=== PATIENT | male | born 1945 | race Caucasian/White ===

== ENCOUNTER → 2016-07-18 | Outpatient (CLI) | payer OTHER ==
[~2016-07-18] MED LIST: ADVIN25/60 INH; CLR10 PO; FINA5TAB PO; IMD/2 PO; OXYM0.0592 NAE; PRLSR20 PO
[2016-07-18 12:54] LABS: CHOLESTEROL/HDL RATIO 1.8
== END | disposition home or self-care (01) ==
LOC: C.LABBFT 11:21
PROVIDERS: ATTEND Nurse Practitioner
DX: E78.5 Hyperlipidemia, unspecified (principal)

== ENCOUNTER → 2017-03-23 | Outpatient (CLI) | payer OTHER ==
--- NOTE | 2017-03-23 10:47 | DIAGNOSTIC IMAGING REPORT ---
CERVICAL SPINE 5 VIEWS HISTORY: M79.601 Paresthesia and pain of both upper [id number] COMPARISON: None. FINDINGS: The cervical spine is visualized from C1 through the superior endplate of T1. There is no fracture. 2 mm of retrolisthesis of C3 on C4. Moderate facet degenerative changes throughout the cervical spine. Moderate to space narrowing at C3-C4, C4-C5, and C5-C6. Mild levoscoliosis at the cervicothoracic junction which could be positional. Prevertebral soft tissues and the atlantodens interval are intact. IMPRESSION: 1. Moderate degenerative disc disease and facet osteoarthritis within the cervical spine as described above. 2. There is 2 mm of retrolisthesis of C3 on C4. This favors long-standing degenerative change. Electronically signed by: Zen Ballesteros M.D. 03/23/2017 10:46 AM Dictated Date/Time: 03/23/2017 10:43 AM
== END | disposition home or self-care (01) ==
LOC: C.RAD1850 10:23
PROVIDERS: ATTEND Physician Assistant Medical
DX: R20.2 Paresthesia of skin (principal); M79.601 Pain in right arm; M79.602 Pain in left arm; M50.30 Other cervical disc degeneration, unspecified cervical region; M53.82 Other specified dorsopathies, cervical region

== ENCOUNTER 2019-01-10 06:54 | Inpatient (IN) ==
--- NOTE | 2019-01-07 09:29 | Anesthesiology Consultation ---
Date of Service January 07, 2019 Assessment & Plan (1) Encounter for pre-operative examination: Chart Review Chart Review: Acceptable Risk for Surgery and Patient NOT seen in Pre Admission Testing History Surgery Operation Date: 01/10/19 11:45 Proposed Procedures p Laparoscopic Hiatal Hernia Repair with Fundoplication, - Steve Wilkes DO s Intra-Op EGD - Steve Wilkes DO Height/Weight Height: 5 ft 9 in Weight: 99.79 kg Allergies Allergy/AdvReac Type Severity Reaction Status Date / Time No Known Allergies Allergy Verified 01/01/19 09:20 Medications Home Medications Medication Instructions Recorded Confirmed Last Taken albuterol sulfate [ProAir HFA] 2 puff INHALATION QID PRN 06/22/18 01/01/19 06/26/18 02:00 aspirin 81 mg PO QAM 06/22/18 01/01/19 06/25/18 04:00 cholecalciferol (vitamin D3) 1,000 unit PO BID 06/22/18 01/01/19 06/25/18 04:00 [Vitamin D3] finasteride 5 mg PO QAM 06/22/18 01/01/19 06/25/18 04:00 fluticasone propion-salmeterol 1 inh INHALATION BID PRN 06/22/18 01/01/19 06/25/18 04:00 [Advair Diskus] fluticasone propionate [Flonase 2 spray INTRANASAL DAILY PRN 06/22/18 01/01/19 Unknown Allergy Relief] loratadine [Claritin] 10 mg PO QAM 06/22/18 01/01/19 06/25/18 04:00 magnesium oxide 400 mg PO QAM 06/22/18 01/01/19 06/25/18 04:00 omeprazole 40 mg PO QAM 06/22/18 01/01/19 06/25/18 04:00 simvastatin 10 mg PO HS 06/22/18 01/01/19 06/25/18 04:00 terazosin 5 mg PO QAM 06/22/18 01/01/19 06/25/18 04:00 montelukast 10 mg tablet 10 mg PO QPM #1 tab 11/14/18 01/01/19 Unknown Past Medical History Medical History Dyspnea on exertion Dysphagia Adenomatous colon polyp H/O Asthma Mild obstructive airway disease per 07/2018 PFTs BPH (benign prostatic hyperplasia) GERD (gastroesophageal reflux disease) Hearing loss in right ear Hiatal hernia History of colon polyps Hyperlipidemia Obesity Past Surgical History Surgical History History of carpal tunnel surgery of right wrist History of colonoscopy History of esophagogastroduodenoscopy (EGD) History of lumbar discectomy History of repair of left rotator cuff History of tonsillectomy Social History Smoking Status: Former smoker tobacco type: cigarettes Do You Dip or Chew Tobacco: No Smoking End Date: QUIT Hx Alcohol Use: Yes Alcohol type: beer alcohol intake frequency: 0-2 drinks per day Hx Substance Use: No substance use type: does not use Testing Laboratory Results 12/24/18 WBC: 4.88 H/H: 13.6/41.8 PLATELETS: 176 SODIUM: 139 POTASSIUM: 4.7 CHLORIDE: 105 CO2: 28 BUN: 25 CREATININE: 1.40 GLUCOSE: 113 A1C: 6.4% Electrocardiogram Date: 01/04/19 Findings: + NSR @ (70) Chest X-Ray Date: 08/29/18 Findings: + NAD Moderate sized hiatal hernia. Stress Test Date: 11/02/18 Type: exercise Normal stress echo at 7 METs and a peak HR of > 100% MPHR. No exercise-induced chets pain. No EKG changes. Baseline echocardiogram notes normal LV sytolic function and no significant valvular pathology. Pulmonary Function Test Date: 07/24/18 Mild obstructive airway disease with slight improvement after inhaled bronchodilatory consistent with the clinical impression of asthma.
[~2019-01-10 06:54] MED LIST changes: -ADVIN25/60 INH; +CEFAZOLIN 2000MG 2,000 MG/15 ML SYR IV SCH; -CLR10 PO; +DEXAMETHASONE SOD INJ 4 MG/ML VIAL ONE; -FINA5TAB PO; +GLYCOPYRROLATE 0.2 MG/ML VIAL ONE; -IMD/2 PO; +LARYING-O-JET KIT (LTA) ONE; +LIDOCAINE HCL 2% 2 ML VIAL/AMP(20MG/ML) INFIL ONE; +LR 15ML/HR IV SCH; +MIDAZOLAM HCL 1 MG/ML 2ML VIAL ONE; +NEOSTIGMINE METHYLSULFATE 5 MG/5 ML SYR ONE; +ONDANSETRON INJ 2 MG/ML 2 ML VIAL ONE; -OXYM0.0592 NAE; -PRLSR20 PO; +PROPOFOL IV EMULSION 10 MG/ML 20 ML VIAL IV ONE; +ROCURONIUM BROMIDE 10 MG/ML 5 ML VIAL ONE; +SUCCINYLCHOLINE CHLORIDE 20 MG/ML 10 ML VIAL ONE; +ePHEDrine sulfate 50 MG/ML SYR ONE; +fentaNYL citrate 100 MCG/2 ML VIAL ONE
[2019-01-10] MEDS ORDERED: BUPIVACAINE/EPINEPHRINE 0.5% MPF 1:200,000 30 ML VIAL ONE (07:10)
--- NOTE | 2019-01-10 07:17 | History & Physical Report ---
Date of Service January 10, 2019 Assessment & Plan (1) Hiatal hernia with GERD: We discussed his options both conservative and operative. We discussed hiatal hernia with and without fundoplication. He should be able to tolerate a 360 degree fundoplication. We discussed risk which include bleeding, infection, DVT, PE, NM, CVA, injury to another organ such as esophagus diaphragm stomach spleen etc. After all this I answered his questions. We discussed diet expected after the procedure. We will proceed with laparoscopic hiatal hernia repair with fundoplication. History of Present Illness Primary Care Provider: Brian Choudhury MD Patient here with known hiatal hernia and rather severe acid reflux disease. Manometry testing did not show a motility disorder. He is here today for laparoscopic hiatal hernia repair and Aga fundoplication. Allergies Allergy/AdvReac Type Severity Reaction Status Date / Time No Known Allergies Allergy Verified 01/01/19 09:20 Home Medications Home Medications Medication Instructions Recorded Confirmed Type albuterol sulfate [ProAir HFA] 2 puff INHALATION QID PRN 06/22/18 01/01/19 History aspirin 81 mg PO QAM 06/22/18 01/01/19 History cholecalciferol (vitamin D3) 1,000 unit PO BID 06/22/18 01/01/19 History [Vitamin D3] finasteride 5 mg PO QAM 06/22/18 01/01/19 History fluticasone propion-salmeterol 1 inh INHALATION BID PRN 06/22/18 01/01/19 History [Advair Diskus] fluticasone propionate [Flonase 2 spray INTRANASAL DAILY PRN 06/22/18 01/01/19 History Allergy Relief] loratadine [Claritin] 10 mg PO QAM 06/22/18 01/01/19 History magnesium oxide 400 mg PO QAM 06/22/18 01/01/19 History omeprazole 40 mg PO QAM 06/22/18 01/01/19 History simvastatin 10 mg PO HS 06/22/18 01/01/19 History terazosin 5 mg PO QAM 06/22/18 01/01/19 History montelukast 10 mg tablet 10 mg PO QPM #1 tab 11/14/18 01/01/19 History Past Med/Surg History Medical History Dyspnea on exertion Dysphagia Adenomatous colon polyp H/O Asthma Mild obstructive airway disease per 07/2018 PFTs BPH (benign prostatic hyperplasia) GERD (gastroesophageal reflux disease) Hearing loss in right ear Hiatal hernia History of colon polyps Hyperlipidemia Obesity Surgical History History of carpal tunnel surgery of right wrist History of colonoscopy History of esophagogastroduodenoscopy (EGD) History of lumbar discectomy History of repair of left rotator cuff History of tonsillectomy Social History Preferred Language: Mauritian Communication Ability: Effective [employer]ating [employer] Required: No Beliefs That Will Affect Care: None Current Living Situation: Spouse Other Information That Helps Us Care for You: No Feels Safe at Home: Yes Safety Concerns: Feels Safe At This Time Smoking Status: Former smoker Tobacco Type: cigarettes ; Do You Dip or Chew Tobacco: No ; Smoking End Date: QUIT ; Second Hand Exposure: Yes ( smokes) ; Tobacco Cessation Education Requested by Patient: No Hx Alcohol Use: Yes Alcohol type: beer Hx Substance Use: No Review of Systems All systems reviewed & are unremarkable except as noted in HPI & below Physical Exam Constitutional: WD/WN, vitals as above no acute distress and not ill appearing Eyes: PERRL, conjunctivae normal, anicteric sclerae EOM intact bilaterally ENMT: external ear and nose normal, oropharynx normal Ears: no hearing impairment Neck: trachea midline, no thyromegaly Respiratory: normal respiratory effort; no respiratory distress and does not use accessory muscles Cardiovascular: Rate/Rhythm: regular rate and regular rhythm Gastrointestinal (Abdomen): normal bowel sounds, soft, nontender, no hepatosplenomegaly Skin: no rashes, warm and dry Psychiatric: Orientation: alert, oriented x 3 and cooperative
[2019-01-10] MEDS ORDERED: ATROPINE SULFATE 0.1 MG/ML 10ML SYR IV PRN (07:40)
[2019-01-10] MEDS ORDERED: ONDANSETRON INJ 2 MG/ML 2 ML VIAL IV PRN ×2 (07:40→11:33)
[2019-01-10] MEDS ORDERED: ePHEDrine sulfate 50 MG/ML AMP IV PRN (07:40)
[2019-01-10] MEDS ORDERED: fentaNYL citrate 100 MCG/2 ML VIAL ONE (08:38)
[2019-01-10] MEDS ORDERED: LABETALOL HCL IV 5 MG/ML 20ML IV ONE (08:41)
[2019-01-10] MEDS ORDERED: ROCURONIUM BROMIDE 10 MG/ML 5 ML VIAL ONE (09:44)
--- NOTE | 2019-01-10 10:19 | Post Operative Brief Note ---
PG Immediate Post Op with CF Date of Surgery January 10, 2019 Pre & Post Diagnosis Operation Date: 01/10/19 08:15 Pre-Op Diagnosis: Hiatal Hernia;gerd Post-Op Diagnosis: Hiatal Hernia;gerd Procedure Operation Date: 01/10/19 08:15 Actual Procedures p Laparoscopic Hiatal Hernia Repair with 360 degree fundoplication(Not Applicabl e) - Steve Wilkes DO Surgeon Steve Wilkes DO Hide Dropper tucker Vera Estimated Blood Loss 150 Findings Consistent with Post-Op Diagnosis
[2019-01-10] MEDS: fentaNYL citrate 100 MCG/2 ML VIAL IV PRN ×2 (10:53→10:58)
--- NOTE | 2019-01-10 11:12 | Anesthesiology Progress Note ---
Date of Service January 10, 2019 Anesthesia Post Procedure Vital Signs Vital Signs: Temp Pulse Resp BP Pulse Ox 01/10/19 11:05 97.2 F L 74 17 137/77 99 01/10/19 10:55 76 19 140/76 100 01/10/19 10:45 75 15 148/79 H 100 01/10/19 10:35 88 13 104/76 98 01/10/19 10:26 96.8 F L 89 16 100/76 98 Pain Intensity Abdomen: Pain Intensity: 4 Transfer of Care Handoff Completed per policy Notes Mental Status: alert / awake / arousable and participated in evaluation Patient Amnestic to Procedure: Yes Nausea / Vomiting: adequately controlled Pain: adequately controlled Airway Patency, RR, SpO2: stable & adequate BP & HR: stable & adequate Hydration State: stable & adequate Anesthetic Complications: no major complications apparent and Pt Satisfied with anesthetic care
[2019-01-10] MEDS ORDERED: MoRPHine SULFATE 4 MG/ML 1 ML CARP\\VIAL IV PRN (11:33)
[2019-01-10] MEDS ORDERED: ALBUTEROL HFA 8 GM INHALER INH PRN (11:33)
[2019-01-10] MEDS ORDERED: ACETAMINOPHEN 1,000 MG/100 ML VIAL IV PRN (11:33)
[2019-01-10] MEDS ORDERED: FLUTICASONE/SALMETEROL 250/50 (ADVAIR) 14 PUFF/1 INHALER INH PRN (11:33)
[2019-01-10] MEDS ORDERED: MoRPHine SULFATE 2 MG/ML CARP IV PRN (11:33)
--- NOTE | 2019-01-10 15:08 | Operative Report ---
Post Operative Report Pre & Post Diagnosis Operation Date: 01/10/19 08:15 Pre-Op Diagnosis: Hiatal Hernia;gerd Post-Op Diagnosis: Hiatal Hernia;gerd Procedure Operation Date: 01/10/19 08:15 Actual Procedures p Laparoscopic Hiatal Hernia Repair with 360 degree Fundoplication(Not Applicable) - Steve Wilkes DO Surgeon Steve Wilkes DO Wash Crew Person tucker Vera Estimated Blood Loss 150 Findings Consistent with Post-Op Diagnosis Specimens none Description of Procedure After informed consent was obtained the patient was taken to the operating room and placed in supine position. After successful intubation the abdomen was shaved and sterilely prepped and draped in usual fashion. A supraumbilical incision was made with an 11 blade scalpel and carried down through the soft tissue using cautery. The anterior rectus fascia was opened using cautery and two #0 Vicryl stay sutures were placed. Peritoneum was entered using finger penetration and a finger sweep performed. A 12 mm Gonzales trocar was placed in the abdomen which was then insufflated to 20 mmHg. Laparoscope was inserted and the abdomen examined in 360 degrees. A subxiphoid 12 mm port a right upper quadrant 5 mm port a right flank 5 mm port a left upper quadrant 5 mm port and eventually another left flank 5 mm port would all be placed. The patient was placed in a steep reverse Trendelenburg position. A liver retractor attached to the table was used throughout the case to help with exposure. This was used to elevate the left lobe of the liver. Once we elevated the liver we noted a very large incarcerated hiatal hernia with probably 80% of the patient's stomach within the chest cavity. This was rather easily reducible. We manually reduced it and then began taking down the hernia sac using primarily harmonic scalpel and traction/countertraction. We began along the right romario of the diaphragm and carried this up anteriorly on the diaphragm and around to the left romario of the diaphragm. We had anesthesia pass a 50 [place] bougie under direct vision and this remained in the esophagus for the remainder of the case. Once we identified the esophagus I continued to take the hernia sac down basically in 360 degrees. Once we did this the stomach was able to stay self reduced in the abdominal cavity. Next we took down the top 3 short gastric vessels. We did get some bleeding with the superior most short gastric vessel and had to control this using the LigaSure device. Once these were all taken down I was then able to create a small window posterior to the stomach. This allowed me to reapproximate the crew using the Endo Stitch device with 0-dacron. I was able to reapproximate the romario posterior to the stomach initially. Once I did this I then used a reticulating grasper to grasp the fundus of the stomach and pull it through the retrogastric window. I was able to perform a shoeshine test without any tension. I performed a posterior gastropexy by suturing the fundus to the right romario of the diaphragm again using the Endo Stitch. Once this was accomplished I then closed the hiatal hernia defect anteriorly again using 0- dacron in simple interrupted fashion. Once the hernia was completely closed I then completed the 360 degree fundoplication. I was able to grasp the stomach lateral to the esophagus grab the pre-esophageal fat pad and then finished the wrap by grabbing the fundus which was now on the medial side. This was able to be sutured down for a 360 degree wrap with a length of about 3 to 4 cm. This laid nice and tension-free. There was no evidence of ischemia. At the end of the procedure there was adequate hemostasis. I thoroughly irrigated the upper abdomen. The liver retractor and all the trochars were removed. The fascia the camera port was closed using 0 Vicryl in a [id number] fashion. All the wounds were irrigated and closed using 4-0 Monocryl. Marcaine was injected around them for postoperative analgesia. Skin glue was used as a dressing. My physician criminal legal assistant was present for the entire case. He helped prep the patient. Helped with running the camera and retraction throughout my dissection as well as with wound closure and I attest to the content of the Intraoperative Record and any orders documented therein. Any exceptions are noted below.
[2019-01-10] MEDS: LACTATED RINGER'S 1,000 ML IV SCH (17:10)
[2019-01-10] MEDS: FINASTERIDE 5 MG TAB PO SCH (19:58)
[2019-01-10] MEDS: TERAZOSIN HCL 5 MG CAP PO SCH (19:58)
[2019-01-10] MEDS ORDERED: SIMVASTATIN 10 MG TAB PO SCH (21:00)
[2019-01-10] MEDS ORDERED: MONTELUKAST SODIUM 10 MG TABLET PO SCH (21:00)
[2019-01-11] MEDS: LACTATED RINGER'S 1,000 ML IV SCH (05:14)
[2019-01-11] MEDS ORDERED: HYDROCODONE/ACETAMOPHEN 5/325MG TAB PO PRN ×2 (08:19)
--- NOTE | 2019-01-11 08:19 | Surgery Progress Note ---
Date of Service January 11, 2019 Assessment & Plan (1) Hiatal hernia with GERD: POD1 laparoscopic hiatal hernia Will transition to po pain Advance to full liquid diet Continue prostate medications and await return of spontaneous voiding, will monitor urine output Will discharge to home pending patient voiding on his own and continued pain control as above. pt now voiding feels well/aminta liquids ok for d/c. instructions given. Subjective Patient reports feeling well this AM. Has been tolerating a clear liquid diet post operatively. Pain well controlled. States that he required a urinary straight catheterization overnight despite being on his home prostate medications, but is starting to void on his own this AM Physical Exam Constitutional: well developed and well nourished; no acute distress Gastrointestinal (Abdomen): Inspection/Auscultation: abdomen normal to inspection Results & Data Vital Signs (Past 12 Hours) Vital Signs Temp Pulse Pulse Resp BP BP Pulse Ox 01/11/19 07:52 36.6 C 84 18 174/80 H 96 01/11/19 02:55 36.4 C L 86 16 155/89 H 96 01/10/19 23:45 01/10/19 23:03 36.7 C 95 H 16 148/84 H 94 01/10/19 22:22 36.6 C 112 H 20 114/66 95 Pulse Ox 01/11/19 07:52 01/11/19 02:55 01/10/19 23:45 94 01/10/19 23:03 01/10/19 22:22 PG Care Time/CCT Total # of Minutes Spent Total Time Spent with Patient: Total time spent is greater than 50% in coordination of care (as documented) at patient's floor/unit and/or counseling patient:
[2019-01-11] MEDS ORDERED: LORATADINE 10 MG TAB PO SCH (09:00)
[2019-01-11] MEDS ORDERED: PANTOprazole 40 MG TAB PO SCH (09:00)
[2019-01-11] MEDS ORDERED: ASPIRIN 81 MG ECTAB PO SCH (09:00)
--- NOTE | 2019-01-11 09:18 | Discharge Summary ---
Date of Service January 11, 2019 Principal Diagnosis Hiatal Hernia with GERD BPH Discharge Exam Constitutional well developed and well nourished; no acute distress Gastrointestinal (Abdomen) Inspection/Auscultation: abdomen normal to inspection and + abdominal surgical incision (clean, dry, intact) Discharge Data Allergies Allergy/AdvReac Type Severity Reaction Status Date / Time pollen extracts Allergy Mild Wheezing Verified 01/10/19 07:28 Procedures Performed Operation Date: 01/10/19 08:15 Actual Procedures p Laparoscopic Hiatal Hernia Repair with Fundoplication(Not Applicable) - Steve Wilkes DO Hospital Course (1) Hiatal hernia with GERD: This is a 73y M who presents to [facility] on 01/10[facility]19 for elective repair of a hiatal hernia. Patient tolerated the procedure well, see operative note for full details. Post operatively the patient was admitted overnight and was started on a clear liquid diet. Overnight he required a urinary straight catheterization x1 for acute urinary retention despite taking his home prostate medications. POD1 patient advanced to a full liquid diet without issues. He started voiding on his own. Pain was controlled with transition from IV to oral pain medication. Surgical incisions clean/dry/intact. He was deemed stable for discharge to home on 01/11/19 and was provided education on continuing a liquid/soft food diet until he is seen in clinic for his follow up appointment. Total Time Total Time Spent Total Time Spent (In Minutes): 15 minutes Discharge Plan Discharge Items Patient Disposition: Home - Self-Care Reason For Visit: Hiatal Hernia Discharge Diagnosis: Laparoscopic Hiatal Hernia Repair Discharge Goals: Decrease discomfort, Improve disease control and Improve function Activity: Per 'Additional Instructions' section Lifting Comment: no more than 20 pounds Bathing Comment: you may shower starting today Exercise/Sports: Wait until after follow-up appointment Driving/Machine Use: Resume 3 days after discharge Non-emergency contact: Surgeon Call non-emergency contact if: you have any medication questions, your symptoms worsen, your pain is not controlled, you have a fever, your temperature is above 101.5, your wound has increased redness, your wound has increased drainage and your wound pain has increased Follow-up/Referrals: Efrem Choudhury MD [Primary Care Provider] - Steve Wilkes DO [Surgeon] - (Please follow up in clinic within 2 weeks. You may call the the office if you have any questions/concerns) Diet: Full liquid Diet Comment: Please continue a liquid/soft food diet until you follow up in clinic. Addtl Provider Instructions: Prescriptions: New ondansetron HCl [Zofran] 4 mg tablet 4 mg PO Q6H PRN (Reason: nausea and vomiting) Qty: 10 RF: 0 hydrocodone-acetaminophen [Burt] 5-325 mg tablet 1 - 2 tab PO Q4H PRN (Reason: pain, for initial therapy) Qty: 15 RF: 0 Continued montelukast [Singulair] 10 mg tablet 10 mg PO QPM Qty: 1 RF: 0 terazosin 5 mg Capsule 5 mg PO QAM RF: 0 fluticasone propion-salmeterol [Advair Diskus] 250-50 mcg/dose Blister With Device 1 inh INHALATION BID PRN (Reason: SOB) RF: 0 simvastatin 10 mg Tablet 10 mg PO HS RF: 0 omeprazole 40 mg Capsule,Delayed Release(Dr/Ec) 40 mg PO QAM RF: 0 aspirin 81 mg Tablet,Delayed Release (Dr/Ec) 81 mg PO QAM RF: 0 albuterol sulfate [ProAir HFA] 90 mcg/actuation Hfa Aerosol Inhaler 2 puff INHALATION QID PRN (Reason: Shortness Of Breath) RF: 0 fluticasone propionate [Flonase Allergy Relief] 50 mcg/actuation Chana,Suspension 2 spray INTRANASAL DAILY PRN (Reason: Allergy Symptoms) RF: 0 finasteride [Proscar] 5 mg Tablet 5 mg PO QAM RF: 0 loratadine [Claritin] 10 mg Tablet 10 mg PO QAM RF: 0 cholecalciferol (vitamin D3) [Vitamin D3] 1,000 unit Capsule 1,000 unit PO DAILY RF: 0 magnesium oxide 400 mg Capsule 400 mg PO QAM RF: 0 loperamide [Imodium A-D] 2 mg Tablet 2 mg PO Q3H PRN (Reason: Loose Stool) RF: 0 Stand-Alone Forms: [facility] Discharge Orders: Discharge Order (Routine); Ordered 01/11/19 Ordered By: Steve Wilkes Admission Data Admit Date/Time: 01/10/19 10:32 Attending Provider: Steve Wilkes Admit Provider: Steve Wilkes Primary Care Provider: Efrem Choudhury Service: Surgical Services Other Interventions: Discharge Summary Assessment (RN) Last Done: 01/11/19 08:42
[2019-01-11] MEDS: TERAZOSIN HCL 5 MG CAP PO SCH (09:32)
[2019-01-11] MEDS: FINASTERIDE 5 MG TAB PO SCH (09:32)
== END 2019-01-11 10:10 | disposition home or self-care (01) | DRG 355 ==
LOC: ASU 06:54 → 3W 10:32
DX: K21.9 Gastro-esophageal reflux disease without esophagitis; K44.0 Diaphragmatic hernia with obstruction, without gangrene; Z79.899 Other long term (current) drug therapy; Z79.82 Long term (current) use of aspirin